=== PATIENT | female | born 1955 | race Caucasian/White ===

== ENCOUNTER → 2017-01-21 | Outpatient (CLI) | payer OTHER ==
[~2017-01-21] MED LIST: ACID CONTROL150 MG PO; ALENDRONATE SOD70 MG PO; ALL DAY ALLERGY10 M3 PO; ALPRAZOLAM0.5 MG PO; ASPIR 8181 MG PO; COLACE 100MG C100 MG PO; DICYCLOMINE HCL20 MG PO; DULERA 200 MCG8.8 GM INH; FISH OIL 10001000 MG PO; FLONASE 0.05% N16 GM; FLUOXETINE HCL10 M1 PO; GABAPENTIN600 MG PO; GABAPENTIN800 MG PO; INVANZ 1 GM VIAL1 GM IM; IPRAT-ALBUT 0.5-3 ML INH; LEVOTHYROXINE75 MCG PO; LISINOPRIL-HCT1 EAC1 PO; MEDROL DOSEPAK 24 MG PO; MULTI FOR HER1 EACH PO; NITROSTAT0.4 MG SL; NORCO 7.5-3251 EACH PO; NORVASC 5 MG TAB5 MG PO; ONDANSETRON HCL4 MG PO; PAROXETINE HCL20 MG PO; PREMARIN VAG CR30 GM EXT; PROVENTIL HFA 61 INH INH; SINGULAIR10 MG PO; VENTOLIN/PROVE0.5 ML INH; VITAMIN D50000 UNIT PO
== END ==
LOC: HEART 5 15:49
DX: R05 Cough (principal); R94.2 Abnormal results of pulmonary function studies; Z87.891 Personal history of nicotine dependence
CPT/HCPCS: 94010

== ENCOUNTER → 2017-01-25 | Day surgery (SDC) | payer OTHER | END | disposition home or self-care (01) | LOC: OR 07:20 | PROVIDERS: Internal Medicine Pulmonary Disease | PROC: 0BJ08ZZ Inspection of Tracheobronchial Tree, Via Natural or Artificial Opening Endoscopic (ICD-10-PCS; principal; 2017-01-25 08:30) | DX: J42 Unspecified chronic bronchitis (principal); J45.909 Unspecified asthma, uncomplicated; G25.81 Restless legs syndrome; G47.9 Sleep disorder, unspecified; I10 Essential (primary) hypertension; E05.90 Thyrotoxicosis, unspecified without thyrotoxic crisis or storm; Z88.1 Allergy status to other antibiotic agents; Z79.899 Other long term (current) drug therapy; Z79.891 Long term (current) use of opiate analgesic; Z79.52 Long term (current) use of systemic steroids; Z90.49 Acquired absence of other specified parts of digestive tract; Z87.891 Personal history of nicotine dependence; Z86.19 Personal history of other infectious and parasitic diseases | CPT/HCPCS: 87015; 87070; 87077; 87102; 87116; 87205; J2250; J7120 ==

== ENCOUNTER → 2017-01-30 | Outpatient (CLI) | payer OTHER ==
[2017-01-30 17:55] LABS: HEMOGLOBIN 13.2 gm/dl (12.3-15.3); RED BLOOD COUNT 4.13 M/UL (4.00-5.10); WHITE BLOOD COUNT 6.5 K/UL (4.5-11.0)
== END ==
LOC: LAB 16:42
PROVIDERS: Internal Medicine Pulmonary Disease
DX: J44.9 Chronic obstructive pulmonary disease, unspecified (principal); R05 Cough
CPT/HCPCS: 36415; 82784; 82785; 82787; 85025

== ENCOUNTER 2017-02-13 17:19 | Inpatient (IN) | payer OTHER ==
[~2017-02-13] VITALS: Ht 172.7 cm; Wt 69.4 kg
[~2017-02-13 17:19] MED LIST changes: -COLACE 100MG C100 MG PO; -FISH OIL 10001000 MG PO; -GABAPENTIN800 MG PO; -INVANZ 1 GM VIAL1 GM IM; -IPRAT-ALBUT 0.5-3 ML INH; -MEDROL DOSEPAK 24 MG PO; -MULTI FOR HER1 EACH PO
[2017-02-13] MEDS ORDERED: MULTI FOR HER1 EACH PO (17:56)
[2017-02-13] MEDS ORDERED: FISH OIL 10001000 MG PO (17:56)
[2017-02-13] MEDS ORDERED: COLACE 100MG C100 MG PO (18:13)
[2017-02-13 20:45] LABS: HEMOGLOBIN 13.8 gm/dl (12.3-15.3); RED BLOOD COUNT 4.3 M/UL (4.00-5.10); WHITE BLOOD COUNT 5.4 K/UL (4.5-11.0)
[2017-02-13 21:04] LABS: BUN/CREATININE RATIO 18 (0-10)
[2017-02-15 06:37] LABS: HEMOGLOBIN 13.2 gm/dl (12.3-15.3); RED BLOOD COUNT 4.11 M/UL (4.00-5.10); WHITE BLOOD COUNT 6.4 K/UL (4.5-11.0)
[2017-02-15 06:56] LABS: BUN/CREATININE RATIO 28 (0-10)
[2017-02-15] MEDS ORDERED: INVANZ 1 GM VIAL1 GM IM (16:46)
[2017-02-15] MEDS ORDERED: MEDROL DOSEPAK 24 MG PO (16:47)
[2017-02-15] MEDS ORDERED: IPRAT-ALBUT 0.5-3 ML INH (16:48)
[2017-02-16] MEDS ORDERED: GABAPENTIN800 MG PO (12:37)
== END 2017-02-16 13:26 | disposition home health service (06) | DRG 190 ==
LOC: M/S 17:19
PROVIDERS: Physician Assistant; ADMIT Internal Medicine
DX: J44.0 Chronic obstructive pulmonary disease with (acute) lower respiratory infection (principal); J18.9 Pneumonia, unspecified organism; J10.00 Influenza due to other identified influenza virus with unspecified type of pneumonia; J44.1 Chronic obstructive pulmonary disease with (acute) exacerbation; B96.3 Hemophilus influenzae [H. influenzae] as the cause of diseases classified elsewhere; K21.9 Gastro-esophageal reflux disease without esophagitis; I10 Essential (primary) hypertension; E03.9 Hypothyroidism, unspecified; B19.20 Unspecified viral hepatitis C without hepatic coma; Z87.891 Personal history of nicotine dependence; Z88.8 Allergy status to other drugs, medicaments and biological substances; Z79.82 Long term (current) use of aspirin; Z79.51 Long term (current) use of inhaled steroids; Z79.899 Other long term (current) drug therapy; G25.81 Restless legs syndrome; J30.9 Allergic rhinitis, unspecified; F32.9 Major depressive disorder, single episode, unspecified; Z88.2 Allergy status to sulfonamides; Z91.041 Radiographic dye allergy status; Z83.3 Family history of diabetes mellitus; Z82.49 Family history of ischemic heart disease and other diseases of the circulatory system; Z84.1 Family history of disorders of kidney and ureter; Z79.891 Long term (current) use of opiate analgesic
CPT/HCPCS: 36415; 71020; 80048; 80053; 85025; 85027; 87040; 94640; J1335; J1650; J2920; J7050

== ENCOUNTER → 2022-03-21 | Outpatient (CLI) | payer MEDICARE, OTHER ==
[~2022-03-21] MED LIST changes: +COLACE 100MG C100 MG PO; +FISH OIL 10001000 MG PO; +GABAPENTIN800 MG PO; +INVANZ 1 GM VIAL1 GM IM; +IPRAT-ALBUT 0.5-3 ML INH; +MEDROL DOSEPAK 24 MG PO; +MULTI FOR HER1 EACH PO
== END ==
LOC: EMI 02-26 13:45
DX: M54.2 Cervicalgia (principal); G95.89 Other specified diseases of spinal cord; R29.6 Repeated falls; M47.812 Spondylosis without myelopathy or radiculopathy, cervical region; M48.02 Spinal stenosis, cervical region
CPT/HCPCS: 72141